=== PATIENT | male | born 1965 | race Caucasian/White ===

== ENCOUNTER 2022-10-04 09:31 | Outpatient (CLI) | payer OTHER, SELFPAY ==
[2022-10-04 12:35] LABS: Chloride* 106 mmol/L (96-114)
[2022-10-04 12:36] LABS: Potassium* 4.5 mmol/L (3.6-5.1); Sodium* 139 mmol/L (135-149)
[2022-10-04 12:38] LABS: Carbon Dioxide* 26 mmol/L (20-32); Cholesterol* 129 mg/dL (90-199); Creatinine* 1.3 mg/dL (0.5-1.5); Estimated Glomerular Filt Rate 64 ml/min
[2022-10-04 12:39] LABS: Blood Urea Nitrogen* 24 mg/dL (7-30); Calcium* 9.3 mg/dL (8.4-10.6); Glucose* 136 mg/dL (60-115); HDL Cholesterol* 37 mg/dL (>=40); LDL Cholesterol Calculated 75 mg/dL (<100); Triglycerides* 83 mg/dL (40-149)
== END 2022-10-04 09:32 | disposition home or self-care (01) ==
PROVIDERS: PCP Family Medicine; Visit Provider Family Medicine
DX: E78.5 Hyperlipidemia, unspecified (principal); E13.9 Other specified diabetes mellitus without complications; Z12.5 Encounter for screening for malignant neoplasm of prostate
CPT/HCPCS: 80048; 80061; 84153

== ENCOUNTER 2023-09-18 10:14 | Outpatient (CLI) | payer BC, SELFPAY | END 2023-09-18 10:15 | disposition home or self-care (01) | LOC: NFLDREF 09-19 05:59 | PROVIDERS: PCP Family Medicine; Referring Provider Family Medicine; Visit Provider Family Medicine | DX: E78.5 Hyperlipidemia, unspecified (principal); I10 Essential (primary) hypertension; E13.9 Other specified diabetes mellitus without complications | CPT/HCPCS: 80048; 80061 ==